=== PATIENT | male | born 1940 | race Caucasian/White ===

== ENCOUNTER 2020-03-01 22:33 | Inpatient (IN) | payer OTHER, BC ==
[~2020-03-01] VITALS: Ht 167.6 cm; Wt 71.7 kg
[2020-03-01 22:34] VITALS: BP 150/69
[2020-03-01 23:35] LABS: BASOPHILS 0.9 % (0.0-2.0); EOSINOPHILS 0.1 % (0.0-3.0); HEMATOCRIT 26.4 % (42.0-52.0); HEMOGLOBIN 8.7 gm/dL (14.0-18.0); LYMPHOCYTES 3.7 % (24.0-44.0); MCH 33.6 pg (26.0-34.0); MCHC 33.1 g/dL (28.0-37.0); MCV 101.4 fL (80.0-100.0); MONOCYTES 6.9 % (1.0-8.0); PLATELET COUNT 151 thou/uL (150-400); POLYS 88.4 % (36.0-66.0); RDW 19.4 % (10.5-14.5); WBC 11.3 thou/uL (4.0-11.0)
[2020-03-01 23:53] LABS: CALCIUM 7.9 mg/dL (8.5-10.1); CREATININE 1.6 mg/dL (0.7-1.3); POTASSIUM 4.2 mmol/L (3.5-5.1)
[2020-03-01 23:58] LABS: ALBUMIN 2.6 g/dL (3.4-5.0); TOTAL BILIRUBIN 0.8 mg/dL (0.2-1.0); TOTAL PROTEIN 6.1 g/dL (6.4-8.2)
--- NOTE | 2020-03-01 23:59 | NUR ---
1929 NIGHT WAS CHILLING- GIVEN 1 GM OF ACETAMINOPHEN 2100 TEMP WAS 102.7 HAD FLU SHOT ON . WAS AT [facility] THIS WEEK FOR CHEST XRAY FOR PICC LINE PLACEMENT
[2020-03-02 00:25] LABS: URINE BILIRUBIN NEGATIVE (Negative); URINE BLOOD NEGATIVE (Negative); URINE CLARITY CLEAR; URINE COLOR YELLOW; URINE GLUCOSE-RANDOM* NEGATIVE (Negative); URINE KETONES NEGATIVE (Negative); URINE LEUKOCYTES-REFLEX NEGATIVE (Negative); URINE NITRITE-REFLEX NEGATIVE (Negative); URINE PROTEIN (DIPSTICK) NEGATIVE (Negative); URINE SPECIFIC GRAVITY 1.015 (1.005-1.035); URINE UROBILINOGEN 0.2 E.U./dl (0.2-1.0)
[2020-03-02] MEDS ORDERED: ALLOPURINOL 30300 M1 PO (01:04)
[2020-03-02] MEDS ORDERED: GLIMEPIRIDE1 MG PO (01:05)
[2020-03-02] MEDS ORDERED: ATENOLOL 50MG T50 M1 PO (01:06)
[2020-03-02] MEDS ORDERED: NORVASC5 MG PO (01:06)
[2020-03-02] MEDS ORDERED: NOVOLIN R100 UNIT/3 INJECTION (01:06)
[2020-03-02] MEDS ORDERED: CHLORDIAZEPO-A1 EACH PO (01:07)
[2020-03-02] MEDS ORDERED: SYNTHROID150 MCG PO (01:07)
[2020-03-02] MEDS ORDERED: DUTASTERIDE0.5 MG PO (01:07)
[2020-03-02] MEDS ORDERED: IRBESARTAN300 MG PO (01:07)
[2020-03-02] MEDS ORDERED: OMEPRAZOLE40 MG PO (01:08)
[2020-03-02] MEDS ORDERED: NOLVADEX20 MG PO (01:08)
[2020-03-02] MEDS ORDERED: ZOCOR 20 MG TAB20 M1 PO (01:08)
[2020-03-02 05:46] VITALS: BP 122/41
[2020-03-02 06:15] VITALS: BP 122/41
--- NOTE | 2020-03-02 06:46 | NUR ---
PATIENT TRANSFERRED FROM ER AND ARRIVED ON FLOOR AT 0620. PATIENT SETTLED. EDUCATED ABOUT CALL LIGHT. GEOTHERMAL PRODUCTION MANAGER APPLIED. DESIGNATED VISITOR ENTERED.
--- NOTE | 2020-03-02 07:21 | NUR ---
ADMISSION NOT DONE YET, PT CAME LATE PRIOR SHIFT 06:20. SPOKE WITH HIM, USUALLY HAS TPN VIA PICC LINE, ALSO HAS SEVERAL MEALS. HAS RASH UNDER ARMPIT AND POSSIBLE SORES ON BOTTOM, SHOWED HIM CALL LIGHT USE, GOT WARM BLANKET AND ENCOURAGED HIM TO USE CALL LIGHT FOR ANY NEEDS. WILL DO ADMISSION LATER THIS A.M. AT FIRST AVAILABLE OPPORTUNITY. SEE SEPARATE INTERVENTIONS FOR ASSESSMENTS. A&OX4, AMB INDEPENDENTLY
--- NOTE | 2020-03-02 08:46 | NUR ---
WILL WORK ON ADMISSION NOW AND WHEN SPOUSE ARRIVES W/PT'S MEDICATION LIST. HE IS A&OX4 AND DOES AMB STEADY, ENCOURAGED HIM TO USE CALL LIGHT FOR ANY NEEDS. UNDERSTOOD TPN FOR MOST MEALS ALONG WITH SOME PO.
[2020-03-02] MEDS ORDERED: TYLENOL325 M1 PO (09:01)
[2020-03-02 09:15] VITALS: BP 139/58
[2020-03-02 12:00] VITALS: BP 136/54
--- NOTE | 2020-03-02 12:40 | EKG ---
[facility] [place] [address] ELECTROCARDIOGRAM REPORT Name: LISA REYNOSO Room #: 213-P ADM IN M.R.#: [id number] Admission: 03/02/20 Attend Phys: Maged Rush MD Discharge: Date of : 38 Report #: [id number] THIS REPORT FOR: cc: Vishal Jones MD, Richard James MD Santiago, Patrick MD [facility] ~ THIS REPORT FOR: //name// [facility] ED Test Date: 2020-03-01 Test Time: 23:27:30 Pat Name: LISA REYNOSO Department: Room: 213 P Gender: M Network Mgr: HELEN : 1940 Requested By: Maged Rush Order Number: [id number] MD: Jl Pérez Measurements Intervals [place] Rate: 93 P: 69 [place]: 201 QRS: 13 QRSD: 110 T: 21 QT: 418 QTc: 520 Interpretive Statements Sinus rhythm Minimal ST depression, anterolateral leads Prolonged QT interval Baseline wander in lead(s) V1,V2 Compared to ECG 03/01/2020 23:18:09 ST (T wave) deviation now present Prolonged QT interval now present First degree AV block no longer present Electronically Signed On 03-02-2020 12:40:27 CDT by Jl Pérez [email or web address] <ELECTRONICALLY SIGNED> By: Jl Pérez MD, [facility] 03/02/20 1240 2327 2327 Jl Pérez MD, [facility] /EPI
--- NOTE | 2020-03-02 12:40 | EKG ---
[facility] [place] [address] ELECTROCARDIOGRAM REPORT Name: LISA REYNOSO Room #: 213-P ADM IN M.R.#: [id number] Admission: 03/02/20 Attend Phys: Maged Rush MD Discharge: Date of : 38 Report #: [id number] THIS REPORT FOR: cc: Vishal Jones MD, Richard James MD Santiago, Patrick MD [facility] ~ THIS REPORT FOR: //name// [facility] ED Test Date: 2020-03-01 Test Time: 23:18:09 Pat Name: LISA REYNOSO Department: Room: 213 P Gender: M Renewals Manager: HELEN : 1940 Requested By: Maged Rush Order Number: [id number] MD: Jl Pérez Measurements Intervals [place] Rate: 92 P: 53 [place]: 241 QRS: 13 QRSD: 87 T: 39 QT: 365 QTc: 452 Interpretive Statements Sinus rhythm Prolonged [place] interval Baseline wander in lead(s) V5 No previous ECG available for comparison Electronically Signed On 03-02-2020 12:40:20 CDT by Jl Pérez [email or web address] <ELECTRONICALLY SIGNED> By: Jl Pérez MD, [facility] 03/02/20 1240 2318 2318 Jl Pérez MD, [facility] /EPI
[2020-03-02 16:00] VITALS: BP 168/45
[2020-03-02 16:08] LABS: CALCIUM 7.7 mg/dL (8.5-10.1); CREATININE 1.4 mg/dL (0.7-1.3); POTASSIUM 4.2 mmol/L (3.5-5.1)
--- NOTE | 2020-03-02 16:25 | NUR ---
Met with patient and . Patient admits with fever, cellulitis. Patient has pancretic cancer. 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 Patient to rec clinical trial of chemo to start today. has notified [facility] of admission. Prior to admission patient rec HH [facility] and [facility] for home tpn. Updated both companies and plan home with resumption of care at [facility].
--- NOTE | 2020-03-02 16:54 | NUR ---
PT ON SERVICE WITH [facility] FAXED CLINICAL UPDATE RECEIVED CONFIRMATION ALSO FAXED UPDATE TO [facility] PT ALSO ON SERVICE WITH THEM PRIOR TO ADM.
[2020-03-02 20:06] VITALS: BP 137/50
--- NOTE | 2020-03-02 21:20 | NUR ---
1750- RECEIVED REPORT FROM MAC PADGETT THAT PT WAS TRANSFERRING TO 4W FROM CCU. PT ARRIVED VIA WHEELCHAIR AND PLACED IN CHAIR IN PT ROOM. CHAIR ALARM ON. PT'S ACCOMPAINIED PT TO ROOM AND EXPLAINED PT'S CREAMS THAT SHE BROUGHT FROM HOME AND STATED THEY WERE ALREADY GIVEN THE OKAY TO USE THESE CREAMS IN HOSPITAL FROM PHYSICIAN AND FROM PHARMACIST. PT STATES HE FELT ROOM WAS CHILLY AND PT GIVEN HEATED BLANKED AND STATED RELIEF FROM CHILLS. PT ATE DINNER PRIOR TO ARRIVING TO ROOM. REPORT GIVEN TO LAURA FUENTES.
[2020-03-03 03:15] VITALS: BP 127/55
--- NOTE | 2020-03-03 04:45 | NUR ---
ASSUMED PT CARE AROUND 190. AXOX4. INDEPENDENT WITH ADLs. [facility] TPN AND IV ATB. VSS WITH LOW GRADE FEVER. R LATERAL CHEST RED AND WARM TO TOUCH. DENIES PAIN. NO S/S ACUTE DISTRESS NOTED OR REPORTED AT THIS TIME. WILL CONT TO MONITOR FOR ANY CHANGES IN CONDITION.
[2020-03-03 06:03] LABS: HEMATOCRIT 24.1 % (42.0-52.0); HEMOGLOBIN 8.1 gm/dL (14.0-18.0); MCH 34.2 pg (26.0-34.0); MCHC 33.6 g/dL (28.0-37.0); MCV 101.6 fL (80.0-100.0); RBC 2.37 mil/uL (4.50-6.00); RDW 18.5 % (10.5-14.5); WBC 5.9 thou/uL (4.0-11.0)
[2020-03-03 06:08] LABS: CALCIUM 7.5 mg/dL (8.5-10.1); CREATININE 1.6 mg/dL (0.7-1.3); MAGNESIUM 1.9 mg/dL (1.8-2.4); POTASSIUM 3.8 mmol/L (3.5-5.1)
[2020-03-03 07:35] VITALS: BP 128/58
--- NOTE | 2020-03-03 07:38 | HC ---
[facility] [place] [address] CONSULTATION Name: LISA REYNOSO Room #: 463-P ADM IN M.R.#: [id number] Admission: 03/02/20 Attend Phys: Maged Rush MD Discharge: Date of : 38 Report #: [id number] THIS REPORT FOR: cc: Vishal Jones MD, Richard James MD McKittrick, Richard James MD ~ CC: Maged Mckenzie DATE OF SERVICE: 03/02/2020 PRIMARY CARE PHYSICIAN: Robert Rodgers MD REASON FOR CONSULTATION: History of pancreatic cancer. HISTORY OF PRESENT ILLNESS: The patient is a very pleasant 79-year-old male, patient of W-21 who has a recent history of pancreatic cancer with omental metastasis, who has been on Gemzar and Abraxane. I had last seen him about 4 days ago. At that time, we had held his chemo because of thrombocytopenia of about 70,000 range. Over the next several days, he has had a fever, which they thought been from a flu shot. He came to the Emergency Room last night had a temperature of 102.7 as an outpatient and was noted to have what appeared to be cellulitis of the right axilla. He and his had not been aware of and in his early today when he had a shower, he had not been read there. On exam today, it looks like it is much improved compared to what he described last night. The patient had a fever, had not really had any new headaches lately. No shortness of breath. No new cough. No new arm or leg swelling. Energy has been about the same, which means he does have some fatigue. PAST MEDICAL HISTORY: Quite extensive and notable for pancreatic cancer, metastatic, recently responding to Gemzar and Abraxane, now considering a study with Dr. Dereje Raines at [facility]; also history of male breast cancer; history of CHEK2 genetic mutation, history of hypertension, hyperlipidemia, hyperthyroid, thyroid cancer, gout, type 2 diabetes, migraines. 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 FAMILY HISTORY: Noncontributory. [facility] [address] [place] [address] CONSULTATION Name: LISA REYNOSO Room #: 463-P [facility] IN ..#: [id number] Admission: 03/02/20 Attend Phys: Maged Rush MD Discharge: Date of : 38 Report #: [id number] MEDICATIONS: At this time in the hospital currently include amitriptyline 12.5 at bedtime, docusate, Senokot 1 tablet daily, heparin 5000 units b.i.d., Dutasteride 0.5 mg daily, allopurinol 300 mg daily, levothyroxine 150 mcg daily, tamoxifen 20 mg daily, atenolol 100 mg daily, amlodipine 5 mg daily, atorvastatin calcium 10 mg daily, insulin on a sliding scale, pantoprazole 40 mg daily, nystatin swish and spit, MiraLax daily, vancomycin q.12, I believe he also received a dose of Zosyn, also p.r.n. Tylenol, p.r.n. Zofran, p.r.n. fentanyl. There was a dose of Zosyn. Note, we had stopped this tamoxifen earlier appears of this minimal risk for breast cancer potential, risk for clot, we will advise to stop it here in the hospital. PHYSICAL EXAMINATION: GENERAL: The patient appears his stated age. He is alert and oriented. MOOD: He is pleasant, conversant. His participated by phone. LUNGS: Appear to be clear anteriorly. They are symmetric, unlabored. No rhonchi or wheezes. HEART: Regular rate. LYMPHATICS: No enlarged lymph nodes. Right axilla does have a very light pink color much better than the red that was described in earlier notes. ABDOMEN: Slightly obese. No masses. EXTREMITIES: Without clubbing or cyanosis. There is some trace edema. LABORATORY DATA: Here notable for BUN of 38, creatinine 1.6, albumin 2.6, total bilirubin 0.8, AST 25, ALT 30. White count 11.3, hemoglobin 8.7, and platelets 151. Differential slightly increased neutrophils. UA nonacute. Chest x-ray, no acute process. ASSESSMENT AND PLAN: 1. Pancreatic cancer, metastatic. Stable scan, had been on Gemzar and Abraxane last week held, was planning to talk with Dr. Raines regarding participation in study. We will hold this until the patient at the hospital. 2. History of omental metastasis as above. 3. Fever and probable cellulitis, clinically looks improved and actually awaiting to see fever curve today. Defer to ID whether vancomycin and Zosyn are continued or changed. 4. 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 Liver functions normal. Follows with Dr. Cabello. 5. Malnutrition, had been on TPN. I would hope that they plan to continue this. 6. History of male breast cancer, non-recurrent, not treat at this time, there is a clot risk with tamoxifen. 7. CHEK2 genetic mutation. The patient is undergoing appropriate followup. 8. History of thyroid cancer, non-recurrent. 9. Hypertension, meds per others. 10. Hyperlipidemia, meds per others. [facility] [place] [address] CONSULTATION Name: LISA REYNOSO Room #: 463-P ADM IN M.R.#: [id number] Admission: 03/02/20 Attend Phys: Maged Rush MD Discharge: Date of : 38 Report #: [id number] 11. Gastroesophageal reflux disease, proton pump inhibitor. 12. Hyperthyroid, replaced. 13. Benign prostatic hypertrophy, meds. 14. Type 2 diabetes. Accu-Cheks, insulin and oral agents. 15. Gout, allopurinol. 16. Mild anemia. We will follow for now. <ELECTRONICALLY SIGNED> By: Isaiah Mckenzie MD 03/03/20 0738 [id number] Isaiah Mckenzie MD /nt
--- NOTE | 2020-03-03 11:39 | NUR ---
WOUND CONSULT; UPON ASSESSMENT NO WOUNDS WERE IDENTIFIED. I DISCUSSED PRESSURE ULCER PREVENTION. OFFLOADING, DIET, AMBULATION ETC. THE PATIENT STATES HE IS NOT INCONTINENT AND WALKS 1/2 MILE IN HIS HOME DAILY. RECOMMEDATIONS; NONE AT THIS TIME. I WILL SIGN OFF. PLEASE RECONSULT IF NECCESSARY.
[2020-03-03 12:34] VITALS: BP 128/60
[2020-03-03 17:22] VITALS: BP 127/52
[2020-03-03 20:33] VITALS: BP 122/57
--- NOTE | 2020-03-03 20:41 | NUR ---
Received awake on bed. Due medications given as prescribed, able to swallow meds w/o difficulty. On room air. Vital signs stable- no fever noted the whole shift. On telemetry; no complaints of chest pain, crushing sensation and heaviness. Assisted in ADLs. On heart healthy diet- with poor appetite; offered snacks, no nausea, no vomiting and no abdominal pain noted; on nocturnal TPN feeding- given as prescribed. On blood sugar monitoring- taken and recorded accordingly; with sliding scale insulin ordere- given as prescribed. With 2 lumen PICC line- dressing changed today by IV nurse. With excoriation at buttocks- seen by wound nurse today- regimen followed as ordered. Complained of headache- PRN pain meds given as prescribed. To continue monitoring patient. Pt due TPN at 1800- not in PT ref and IV bin, called pharmacy- will be bringing up- Night RN informed that TPN still not here during shift change- to hook once available- pt informed and updated.
[2020-03-04 08:50] VITALS: BP 134/56
--- NOTE | 2020-03-04 13:37 | NUR ---
Received awake on bed. Due medications given as prescribed, able to swallow meds w/o difficulty. On room air. Vital signs stable, no fever noted this morning. A+Ox4. On telemetry; no complains and signs of chest pain, crushing sensation and heaviness. On heart healthy diet- tolerating well; encouraged in eating and drinking, offered snacks. On blood sugar monitoring-taken and recorded accordingly; with sliding scale insulin ordered. Continent of bowel and bladder- able to go to the toilet independently. With L upper arm double lumen PICC line- on nocturnal TPN and IV antibiotics. With cellulitis at R chest- physician aware; photo taken. at bedside. Night RN said that blood draw not done, blood cultures obtained and sent to lab. To continue monitoring patient.
[2020-03-04 15:10] VITALS: BP 143/93
--- NOTE | 2020-03-04 16:11 | NUR ---
PT HAD BEEN ON IV VANC AND ZOSYN. ID INDICATED THAT HE WAS SWITCHING HIM TO CEFTRIAXONE. ONC FOLLOWING WELL. PT AND OT HAD DC'D PT. CLINICAL INFO HAD BEEN BEEN SENT TO [facility] FOR HOME TPN PT HAD BEEN ON SERVICE WITH THEM AUTO PORTER. CM TO FOLLOW INDICATED WITH DC PLANNING.
[2020-03-04 20:00] VITALS: BP 148/55
--- NOTE | 2020-03-05 14:02 | NUR ---
CM MET WITH PT AT BEDSIDE THIS DAY. HOSPITALIST ASKED ABOUT POSSIBILITY OF PT GOING HOME WITH HOME INFUSION SERVICS. HE HAD SPOKEN WITH PT AND HIS ABOUT IT. PT INDICATED HE WAS RECEPTIVE TO FINDING OUT HIS BENEFIT COVERAGE FOR POSSIBLE SERVICES. 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 CM CALLED [facility] SPOKE WITH [facility] AND GAVE HER HEADS UP. CM FAXED REFERRAL. CM TEAM PROVIDED UPDATE TO [facility]. CM TO FOLLOW INDICATED WITH DC PLANNING.
[2020-03-05 15:46] VITALS: BP 142/87
--- NOTE | 2020-03-05 15:53 | NUR ---
ASSUMED CARE AT APPROX. 0800. ASSESSMENT CHARTED. MEDICATION GIVEN PER JUL. VSS. TPN COMPLETE. PATIENT IS A&OX4, DENIES PAIN AND GETS UP INDEPENDENTLY WITH NO ISSUES. PATIENT HAS A REDDENED AREA ON SHOULDER BUT DENIES ANY ITCHING. PATIENTS APPETITE IS POOR. ONLY TOLERATING CLEAR LIQUIDS. PATIENT HAS AN INTACT UPPER ARM PICC AND GETS CEFTRIAXONE. WILL CONTINUE TO MONITOR AND FOLLOW PLAC OF CARE
--- NOTE | 2020-03-05 20:22 | NUR ---
I AGREE WITH NURSING ASSESSMENT AND NURSING NOTE DONE BY CARLA/WIRE INSERTER.
[2020-03-05 20:43] VITALS: BP 127/59
[2020-03-06 08:00] VITALS: BP 126/52
--- NOTE | 2020-03-06 08:05 | NUR ---
progress pt a/o x4 up with sba, tele intact reading sr skin c/d/i under right axilla is red warm and swollen to touch some firmness noted to swollen portion. picc line to trell with 2 ports with good blood return flushes without difficulty caps changed after labs per protocol. voiding qs in urinal and ambulated to bathroom for small bm. still has poor appetite and declined a bed time snack but did drink 500'ccs water tpn initiated at 2000 infused x1 hour at 90 cc's then increased to 135 cc's per hour x 12 to titrate down to 90 and then stop approx. 1030 am. denies pain continue poc.
[2020-03-06 09:12] LABS: CALCIUM 8.1 mg/dL (8.5-10.1); CREATININE 1.2 mg/dL (0.7-1.3); POTASSIUM 4.2 mmol/L (3.5-5.1)
[2020-03-06 11:21] LABS: INR 1.2; PROTIME 12.4 Seconds (9.3-11.4)
[2020-03-06 15:43] VITALS: BP 125/51
--- NOTE | 2020-03-06 16:05 | NUR ---
IT HAD BEEN INDICATED THAT PT WAS GOING TO HAVE ULTRASOUNS WITH BIOPSY THIS AM. TURNS OUT PT ISN'T HAVING THAT PROCEDURE NOW. CM MET WITH PT AND SPOUSE AT [facility]. CM INFORMED THEM OF PT'S COVERAGE F OR DAILY CEFTRIAXONE FOR HOME INFUSION WITH [facility] $154.41 WEEKLY. THEY ARE AWARE. AWAITING INDICATION OF WHETHER PT IS MEDICALLY STABLE TO DISCHARGE WITH HOME INFUSION AND TPN OR NOT. SHOULD PLE BE MEDICALLY STABLE TO DC OVER THE WEEKEND. CALL AND FAX FINAL ORDERS TO THE COMPANIES BELOW. [facility] AND HOME TPN: P: F: [facility] P: F:
--- NOTE | 2020-03-06 16:47 | NUR ---
Assessment completed.vss.Pt in and out of bed independently.Dr Nichols here early this shift and order noted.IR notified about pt coming for biopsy, additional order noted.Four hour later,this rn called to check on warehouse picker time for pt procedure but was told that procedure has been cancelled.Pt and his notified.One of the pt picc line port will not aspirate but flushed.Iv team notified and was fixed.No verbal c/o but pt has poor appetite.Will continue to monitor.
[2020-03-06 19:49] VITALS: BP 124/74
[2020-03-07 05:51] LABS: CALCIUM 8.3 mg/dL (8.5-10.1); CREATININE 1.2 mg/dL (0.7-1.3); POTASSIUM 3.9 mmol/L (3.5-5.1)
[2020-03-07 07:25] VITALS: BP 125/51
--- NOTE | 2020-03-07 08:28 | NUR ---
PROGRESS PT A/O X4 UP AD CRISTOFER VOIDING QS,HAD A BM THIS SHIFT, TOLERATING DIET ACCUCHECKS WNL TPN ADMINISTERED ORDERED PICC LINE TO [facility] 2 LUMENS FLUSH AND HAVE GOOD BLOOD RETURN. RIGHT AXILLA STILL RED WARM AND SLIGHTLY SWOLLEN, AREA ON RIGH CHEST WAS SLIGHTLY PINK AND SLIGHTLY SWOLLEN. IV ANTIBIOTICS GIVEN ORDERED PT DENIED NEED FOR PAIN MEDICATION.
[2020-03-07 11:10] VITALS: BP 136/60
[2020-03-07 16:06] VITALS: BP 132/52
[2020-03-07 19:10] VITALS: BP 138/75
--- NOTE | 2020-03-07 19:44 | NUR ---
Assumed pt care this am, PICC line patent and care was done. REceived with a TPN stopped at scheduled time as indicated in the emar. Pt refused most meals was advised by the that he hardly eats and the TPN make him feel full. Medications are tolerated well. POC followed, pt walked the halls with the . Endorsed to the night nurse.
--- NOTE | 2020-03-08 05:55 | NUR ---
VSS-AFEBRILE. ALERT AND ORIENTED X 4, ROOM AIR. TPN RUNNING THROUGH NIGHT ORDERED. VOIDING WITHOUT DIFFICULTY. CALLS APPROPRIATELY FOR ANY NEEDED ASSISTANCE.
[2020-03-08 08:10] VITALS: BP 146/61
[2020-03-08 12:41] LABS: HEMATOCRIT 27.2 % (42.0-52.0); MCH 33.3 pg (26.0-34.0); RBC 2.7 mil/uL (4.50-6.00); RDW 18.4 % (10.5-14.5); WBC 10.5 thou/uL (4.0-11.0)
[2020-03-08 16:00] VITALS: BP 132/53
--- NOTE | 2020-03-08 19:22 | NUR ---
Assumed pt care at 7am.Assessment completed.vss.Pt up adlib in the room and hallways with steady gait.Dr Douglas and Gege here,order noted.Pt here later this afternoon till shift change updates given.Pt will be on tpn from 8p till 9am.No verbal c/o.Report off to steve walsh.
[2020-03-08 21:06] VITALS: BP 125/63
[2020-03-09 08:08] LABS: CALCIUM 8.5 mg/dL (8.5-10.1); CREATININE 1.1 mg/dL (0.7-1.3)
--- NOTE | 2020-03-09 08:23 | NUR ---
progress pt a/o x4 up ad arnold. gait steady and strong. pt voiding per urinal adequate amounts. tpn infusing as ordered am labs drawn and sent to lab. pt reported the red and swollen area under his right axilla was firm and hot to touch warm compress applied to axilla and one to right chest for another red warm swollen area on reinspection noted decrease in firmness and swelling and pt reported it felt nice, advised to continue with the compresses as long as they did not increase swelling or cause pain. iv antibiotics continue
[2020-03-09 09:18] VITALS: BP 123/61
[2020-03-09 15:28] VITALS: BP 146/79
--- NOTE | 2020-03-09 15:49 | NUR ---
Received awake on bed. Due medications given as prescribed, able to swallow meds w/o difficulty. On room air. Vital signs stable. A+Ox4. On telemetry; no complains and signs of chest pain, crushing sensation and heaviness. On heart healthy diet-tolerating well; no nausea, no vomiting and no abdominal pain noted. On blood sugar monitoring-taken and recorded accordingly. Continent of bowel and bladder, using urinal and able to go to the toilet independently. With double lumen PICC line- intact and flushing well; TPN infusing well as per protocol; on IV antibiotics as well. With cellulitis at R axilla and chest(new from last night- Dr Nichols informed from this AM)- to be evaluated by lymphedema nurse; a/w rounds. With at bed side. Able to walk on the hallway and sit out on the chair. No fever noted the whole shift. Assisted in ADLs. Pt seen and examined by IV nurse, suggesting to have PICC line changed to TICC line instead, a/w orders/recommendations. To continue monitoring patient.
--- NOTE | 2020-03-09 16:22 | NUR ---
CARE TEAM CONSULTED LYMPHEDEMA TODAY. AWAITING ID AND ONC INPUT FOR ANTICIPATED NEED AND DURATION OF TREATMENTS. SHOULD PT BE MEDICALLY STABLE TO DC HOMME THIS EVENING. ORDERS NEED TO BE FAXED TO [facility] FOR HOME TPN AND ANY HOME INFUSION NEEDS AND [facility] FOR RESUMPTION OF HH SERVICES. CM TO FOLLOW INDICATED WITH DC PLANNING. [facility] AND HOME TPN: P: F: [facility] P: F:
[2020-03-09 19:55] VITALS: BP 124/71
--- NOTE | 2020-03-09 20:13 | NUR ---
PT HAS A LDLPICC, NEGATIVE CX AT THIS TIME. RT ARM RESTRICTION DUE TO LYMPHEDEMA AND A MASTECTOMY DUE TO BST CA. TICC FOR HOME TPN AND CHEMO? DISCUSSED WITH PT AND BEST OPTION TO REDUCE LT ARM VESSEL FAILURE HIS LT PICC HAS BEEN IN SINCE MAY
[2020-03-10 04:59] LABS: CALCIUM 8.4 mg/dL (8.5-10.1); CREATININE 1.3 mg/dL (0.7-1.3); POTASSIUM 3.8 mmol/L (3.5-5.1)
--- NOTE | 2020-03-10 08:03 | NUR ---
Assumed pt care at 1900. A/OX4,VSS. Up ad arnold w/o problems. Denies pain on assessment. No N/V,TPN initiated at 2029 as available from pharmacy w/o problems on Left PICC. Pt to get a TICC line placed sometime today. Resting quietly in bed no distress noted.
[2020-03-10 09:46] VITALS: BP 149/53
--- NOTE | 2020-03-10 14:10 | NUR ---
PT NOW NEEDING LYMPHEDEMA TREATMENTS UPON DC. [facility] PRIOR HH PROVIDER BANKING SERVICES CLERK DOESN'T PROVIDE THAT SERVICES. PT AND HIS ARE AWARE OF THIS AND ARE RECEPTIVE TO HAVING ANOTHER HH PROVIDER. REFERRAL WAS SENT TO [facility] FOR REVIEW FOR POSSIBLE ADMISSION. PT HAD TICC LINE PLACED THIS AFTERNOON. SENT [facility] RECS TO [facility] SO THEY HAVE UPDATED RECS. THEY ARE TO BEDSIDE TEACH THIS DAY PRIOR TO DC. ANTIPATE THAT PT WILL BE ABLE TO DC HOME THIS DAY ONCE HH ACCEPTS.
[2020-03-10 14:21] VITALS: BP 131/67
--- NOTE | 2020-03-10 14:37 | NUR ---
FAXED REFERRAL TO [facility] SPOKE WITH CAITLIN IN INTAKE SHE RECEIVED REFERRAL AND WILL ACCEPT AT DISCHARGE. [facility] WILL FOLLOW FOR [facility] INFUSION.
[2020-03-10 14:46] VITALS: BP 131/67
[2020-03-10 14:48] VITALS: BP 131/67
[2020-03-10] MEDS ORDERED: CEFTRIAXON2 GM/50 M1 IV (16:27)
[2020-03-10] MEDS ORDERED: MIRALAX17 GM PO (16:27)
--- NOTE | 2020-03-10 17:06 | NUR ---
FAXED DC ORDERS/SUMMARY TO [facility] RECEIVED CONFIRMATION AND LEFT MSG WITH CAITLIN IN INTAKE SHE WILL CALL PT TO ARRANGE VISITS. FAXED DC ORDERS/SUMMARY TO [facility] RECEIVED CONFIRMATION THEY WILL ALSO CALL PT TO ARRANGE FOR VISITS.
--- NOTE | 2020-03-10 18:42 | NUR ---
Received awake on bed. Due medications given as prescribed, able to swallow meds w/o difficulty. On room air. Vital signs stable, no fever noted. On telemetry, no complains and signs of chest pain, crushing sensation and heaviness. On heart healthy diet- tolerating well; no nausea, no vomiting and no abdominal pain. On blood sugar monitoring, taken and recorded accordingly. Continent of bowel and bladder, able to use urinal and go to the toilet independently. With double lumen PICC line at L upper arm, dressing C/D/I- with ongoing TPN, on IV antibiotics. Assisted in ADLs. Still with lymphedema/cellulitis under Right axilla and chest- discharge photo taken. Up ad arnold, steady on his foot. at bedside the whole day. Able to sit out on the chair and walk in the hallway. Patient seen and examined by Dr De Guzman, discharge orders given and instructed. CM informed- set up of Home health, home infusion(pt seen by [facility] nurse, teaching given at bedside).
== END 2020-03-10 18:31 | disposition home health service (06) | DRG 871 ==
LOC: ER 22:33 → EROBS 03-02 00:42 → 2N 03-02 00:42 → 4W 03-02 18:13
PROVIDERS: Emergency Medicine; Internal Medicine; Nurse Practitioner Family; Specialist; ADMIT Hospitalist; ATTEND Hospitalist
PROC: B548ZZA Ultrasonography of Superior Vena Cava, Guidance (ICD-10-PCS; principal; 2020-03-02)
PROC: 02HV33Z Insertion of Infusion Device into Superior Vena Cava, Percutaneous Approach (ICD-10-PCS; principal; 2020-03-02)
PROC: B5181ZA Fluoroscopy of Superior Vena Cava using Low Osmolar Contrast, Guidance (ICD-10-PCS; principal; 2020-03-02)
PROC: 0JH63XZ Insertion of Tunneled Vascular Access Device into Chest Subcutaneous Tissue and Fascia, Percutaneous Approach (ICD-10-PCS; principal; 2020-03-02)
DX: A40.9 Streptococcal sepsis, unspecified (principal); K83.1 Obstruction of bile duct; E43 Unspecified severe protein-calorie malnutrition; N17.9 Acute kidney failure, unspecified; L03.319 Cellulitis of trunk, unspecified; E46 Unspecified protein-calorie malnutrition; C25.9 Malignant neoplasm of pancreas, unspecified; C78.6 Secondary malignant neoplasm of retroperitoneum and peritoneum; L03.313 Cellulitis of chest wall; L02.213 Cutaneous abscess of chest wall; L03.111 Cellulitis of right axilla; Z20.828 Contact with and (suspected) exposure to other viral communicable diseases; D64.9 Anemia, unspecified; I10 Essential (primary) hypertension; E78.5 Hyperlipidemia, unspecified; G43.909 Migraine, unspecified, not intractable, without status migrainosus; M10.9 Gout, unspecified; E11.9 Type 2 diabetes mellitus without complications; K21.9 Gastro-esophageal reflux disease without esophagitis; E89.0 Postprocedural hypothyroidism; G47.00 Insomnia, unspecified; D69.6 Thrombocytopenia, unspecified; N40.0 Benign prostatic hyperplasia without lower urinary tract symptoms; Z90.11 Acquired absence of right breast and nipple; Z90.49 Acquired absence of other specified parts of digestive tract; Z85.3 Personal history of malignant neoplasm of breast; Z85.850 Personal history of malignant neoplasm of thyroid; Z90.5 Acquired absence of kidney; Z80.0 Family history of malignant neoplasm of digestive organs
CPT/HCPCS: 10045